=== PATIENT | male | born 1990 | race Asian ===

== ENCOUNTER 2022-03-30 09:51 | Emergency (ER) | payer SELFPAY ==
[2022-03-30 10:09] VITALS: BP 130/74; PULSE 82; RESP 18; TEMP 97.9; BMI 24.2
== END 2022-03-30 11:13 | disposition home or self-care (01) ==
LOC: JERFT 09:51 → JER 09:51 → JERFT 11:13
DX: H66.002 Acute suppurative otitis media without spontaneous rupture of ear drum, left ear (principal); J02.9 Acute pharyngitis, unspecified
CPT/HCPCS: 0241U-QW; 99283-25